=== PATIENT | male | born 1960 | race Caucasian/White ===

== ENCOUNTER 2017-05-22 09:02 | Day surgery (SDC) | payer OTHER ==
--- NOTE | 2017-05-17 11:33 | RAD REPORT ---
EXAM DESCRIPTION: RADOP - Outpt Chest Pa/Lat (2 Views) - 05/17/2017 10:54 am CLINICAL HISTORY: Preop chest, pending lithotripsy, history of hypertension COMPARISON: None. TECHNIQUE: PA and lateral views of the chest were obtained. FINDINGS: The lungs are clear of a suspicious infiltrate or mass. Granulomas are present. No failure or volume overload. Heart size is normal and central vasculature is within normal limits. No pleura l effusion or pneumothorax seen. No acute bony finding noted. No acute aortic finding. IMPRESSION: No acute cardiopulmonary process.
[2017-05-17 12:25] LABS: Urine Appearance CLEAR; Urine Bilirubin NEGATIVE (NEG); Urine Blood TRACE (NEG); Urine Color YELLOW; Urine Glucose NEGATIVE (NEG); Urine Protein NEGATIVE (NEG); Urine Specific Gravity 1.015 (1.005-1.030); Urine Urobilinogen 0.2 mg/dL (0.2-1.0)
[2017-05-17 12:27] LABS: Urine Microscopic Reflex ORDER UMIC
[2017-05-17 12:38] LABS: Absolute Lymphocytes (CBC) 1.5 K/uL (0.7-4.9); Absolute Monocytes 0.6 K/uL (0.1-1.3); Absolute Neutrophil 5.8 K/uL (1.8-8.0); Basophils % 0.5 % (0-1.3); Eosinophils % 1.3 % (0-4.4); Hematocrit 40.5 % (39.6-49.0); Lymphocytes % 18.8 % (15.3-44.8); MCH 23.8 pg (27.0-35.0); MCV 74.1 fL (80-100); MPV 8.4 fL (7.6-11.3); Monocytes % 7.5 % (3.3-12.3); RBC Red Blood Cell Count 5.46 M/uL (4.33-5.43)
[2017-05-17 12:39] LABS: Protime INR 1.05
[2017-05-17 12:44] LABS: Urine Bacteria NONE SEEN /HPF (NONE SEEN); Urine Culture Reflex Order NOT NEEDED; Urine RBC <5 /HPF (NONE SEEN)
[2017-05-17 13:11] LABS: Potassium 4.3 mEq/L (3.6-5.0)
--- NOTE | 2017-05-17 15:30 | EKG ---
Test Date: 2017-05-17 Test Time: 10:39:53 Manager Of Customer Billing: SKG MEASUREMENT RESULTS: Intervals: Rate: 71 MN: 162 QRSD: 116 QT: 368 QTc: 399 [place]: P: 63 MN: 162 QRS: 4 T: 21 INTERPRETIVE STATEMENTS: Normal sinus rhythm Incomplete right bundle branch block Borderline ECG No previous ECG available for comparison Electronically Signed On 05-17-17 15:28:54 CDT by David Britt
[2017-05-22] MEDS ORDERED: Ringers Lactate 1,000 ML IV ONE (09:14)
[2017-05-22] MEDS ORDERED: GENTAMICIN 80 MG/100 ML BAG 80 MG/100 ML BAG IV ONE (09:14)
--- NOTE | 2017-05-22 09:28 | RAD REPORT ---
EXAM DESCRIPTION: RAD - Abdomen 1 View (KUB) - 05/22/2017 9:18 am CLINICAL HISTORY: Preop examination, pending lithotripsy COMPARISON: KUB May 14 FINDINGS: Bilateral nephrolithiasis is present. 2-6 mm size calcifications are present in the centra l right kidney. A 10 mm calcification is present in the lower pole left kidney. Size, number and morp hology of the renal calculi has not changed over the short interval since May 14. An approximately 5 millimeter calcification is present left mid abdomen along the inferior margin of the L3 left transverse process. This is believed to be a left ureteral calculus. No significant mustafa e in size or position of this calculus. No new pelvic calcification. No obstruction, free air or pneumatosis. Bowel gas pattern is nonspecific. No significant bony findings IMPRESSION: Bilateral nephrolithiasis and left mid ureter calculus not significantly different from May 14.
[2017-05-22] MEDS ORDERED: MIDAZOLAM HCL 2 MG/2 ML INJ ONE (10:51)
[2017-05-22] MEDS ORDERED: LIDOCAINE 1% MPF 5 ML VIAL ONE (10:51)
[2017-05-22] MEDS ORDERED: FENTANYL CITR 100 MCG/2 ML ONE (10:51)
[2017-05-22] MEDS ORDERED: PROPOFOL 200 MG/20 ML VIAL IV ONE (10:51)
[2017-05-22] MEDS ORDERED: KETOROLAC 30 MG/ML INJ ONE (11:28)
[2017-05-22] MEDS ORDERED: ONDANSETRON 4 MG/2 ML VIAL ONE (11:29)
== END 2017-05-22 13:30 | disposition home or self-care (01) ==
LOC: OR 09:02
PROVIDERS: ATTEND Urology
PROC: 0TF4XZZ Fragmentation in Left Kidney Pelvis, External Approach (ICD-10-PCS; principal; 2017-05-22 11:00)
DX: N20.0 Calculus of kidney (principal); N40.0 Benign prostatic hyperplasia without lower urinary tract symptoms; I10 Essential (primary) hypertension; E07.9 Disorder of thyroid, unspecified; Z85.47 Personal history of malignant neoplasm of testis; Z90.79 Acquired absence of other genital organ(s)
CPT/HCPCS: 36415; 50590; 71046; 74018; 80048; 81003; 81015; 84100; 84550; 85025; 85610; 85730; 87086; 87088; 93005; G0103; J1580; J2250; J2405; J3010